=== PATIENT | female | born 1970 | race Caucasian/White ===

== ENCOUNTER 2020-03-16 10:05 | Outpatient (CLI) | payer OTHER, SELFPAY ==
--- NOTE | ~2020-03-16 | NM_ITS ---
EXAMINATION: NM hepatobiliary w pharm DATE: 03/16/2020 12:11 INDICATION: Epigastric pain COMPARISON: None. TECHNIQUE: 5 mCi Tc-99m mebrofenin (Choletec) was administered intravenously. Scintigraphic images o f the abdomen were obtained for one hour. 1.8 mcg sincalide (Kinevac) was administered by slow intrav enous infusion, and imaging was continued for 30 minutes. Gallbladder ejection fraction was calculate d by the technologist. FINDINGS: There is normal clearance of radiotracer from the blood pool. There is homogeneous tracer uptake by t he liver. Activity progresses to the gallbladder and bowel. The gallbladder ejection fraction (GBEF) is indeterminate with increasing gallbladder activity continuing to the 12 minutes following sincali de administration and negligible spinning frame changer the following 18 minutes (normal 10-90%, but most patien t with gallbladder dysfunction have GBEF < 35% which does overlap with the normal range). IMPRESSION: 1. Paradoxical initial increase in uptake with subsequent plateau following sincalide administration which would be consistent with gallbladder dysfunction or chronic cholecystitis in the appropriate c linical setting. Reviewed, dictated and finalized at location B. IMPRESSION: 1. Paradoxical initial increase in uptake with subsequent plateau following si ncalide administration which would be consistent with gallbladder dysfunction o r chronic cholecystitis in the appropriate clinical setting.
== END 2020-03-16 10:06 | disposition home or self-care (01) ==
DX: R10.13 Epigastric pain (principal); R10.11 Right upper quadrant pain; R11.0 Nausea
CPT/HCPCS: 78227; A9537; J2805